=== PATIENT | male | born 1960 | race Caucasian/White ===

== ENCOUNTER 2019-11-26 15:00 | Emergency (ER) | payer BC, OTHER ==
[~2019-11-26] VITALS: Ht 182.9 cm; Wt 81.7 kg
[~2019-11-26 15:00] MED LIST: ASPIRIN EC325 MG PO; OMEPRAZOLE40 MG PO
[2019-11-26] MEDS ORDERED: NORCO 5-325 TA1 EAC1 PO (18:24)
[2019-11-26] MEDS ORDERED: VALIUM5 MG PO (18:24)
[2019-11-26] MEDS ORDERED: MOBIC15 MG PO (18:24)
[2019-11-26 18:49] VITALS: BP 120/71
--- NOTE | 2019-11-27 10:03 | EKG ---
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: [facility] : 1960 Requested By: Rebeca Shirley Order Number: [id number] MD: Jacinto Metcalf Measurements Intervals [place] Rate: 82 P: 47 ME: 137 QRS: 68 QRSD: 93 T: 59 QT: 371 QTc: 434 Interpretive Statements Sinus rhythm Compared to ECG 02/12/2016 07:26:04 No significant changes Electronically Signed On 11-27-2019 10:02:41 [employer] by Jacinto Metcalf [email or web address] <ELECTRONICALLY SIGNED> By: Jacinto Metcalf MD, [facility] 11/27/19 1002 1808 1808 Jacinto Metcalf MD, FACC /EPI
== END 2019-11-26 18:49 | disposition home or self-care (01) ==
LOC: ER 15:00
DX: S43.492A Other sprain of left shoulder joint, initial encounter (principal); Z79.82 Long term (current) use of aspirin; X58.XXXA Exposure to other specified factors, initial encounter; Y93.89 Activity, other specified; Y92.89 Other specified places as the place of occurrence of the external cause; Y99.8 Other external cause status

== ENCOUNTER → 2020-05-26 | Outpatient (CLI) | payer OTHER ==
[~2020-05-26] MED LIST changes: +MOBIC15 MG PO; +NORCO 5-325 TA1 EAC1 PO; +VALIUM5 MG PO
== END ==
LOC: CAT 14:00
PROVIDERS: ATTEND Internal Medicine Cardiovascular Disease
DX: Z13.6 Encounter for screening for cardiovascular disorders (principal); I25.10 Atherosclerotic heart disease of native coronary artery without angina pectoris; E78.00 Pure hypercholesterolemia, unspecified

== ENCOUNTER 2021-04-16 21:42 | Emergency (ER) | payer BC, OTHER ==
[~2021-04-16] VITALS: Ht 182.9 cm; Wt 81.7 kg
[2021-04-16] MEDS ORDERED: HYDROCODON-ACE1 EAC7 PO (23:12)
[2021-04-17 00:16] VITALS: BP 119/71
--- NOTE | 2021-04-17 08:21 | EKG ---
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 : 1960 Requested By: Kush Juárez Order Number: [id number] MD: Navdeep Lynn Measurements Intervals [place] Rate: 91 P: 66 NC: 146 QRS: 69 QRSD: 92 T: 56 QT: 366 QTc: 451 Interpretive Statements Sinus rhythm Probable left atrial enlargement Baseline wander in lead(s) III Compared to ECG 11/26/2019 18:08:55 No significant changes Electronically Signed On 04-17-2021 8:20:49 CDT by Navdeep Lynn [email or web address] <ELECTRONICALLY SIGNED> By: Navdeep Lynn MD, [facility] 04/17/21819 48 2149 Navdeep Lynn MD, FACC /EPI
== END 2021-04-17 00:18 | disposition home or self-care (01) ==
LOC: ER 21:42
DX: S40.012A Contusion of left shoulder, initial encounter (principal); X58.XXXA Exposure to other specified factors, initial encounter; Y93.89 Activity, other specified; Y92.89 Other specified places as the place of occurrence of the external cause; Y99.8 Other external cause status